=== PATIENT | female | born 1960 | race Caucasian/White ===

== ENCOUNTER 2019-02-03 21:55 | Emergency (ER) | payer BC ==
[2019-02-03] MEDS ORDERED: ASPIRIN 81 MG CHEWABLE TABLETS PO ONE (22:12)
[2019-02-03 22:14] VITALS: TEMP 98.2; BMI 23.6
[2019-02-03 22:28] LABS: BASO % 0.4 % (0-2.0); HEMATOCRIT 42.4 % (32.4-45.2); HEMOGLOBIN 14.2 GM/dL (10.7-15.3); LYMPH % 37.4 % (8-40); MCH 29.8 pg (25.7-33.7); MCHC 33.4 g/dl (32.0-36.0); MEAN CELL VOLUME 89.1 fl (80-96); MEAN PLT VOLUME 7.5 fl (7.5-11.1); MONO % 7.4 % (3.8-10.2); NEUT % 53.8 % (42.8-82.8); PLATELET COUNT 301 K/MM3 (134-434); RBC 4.75 M/mm3 (3.60-5.2); RDW 13.6 % (11.6-15.6); WHITE BLOOD COUNT 5.9 K/mm3 (4.0-10.0)
[2019-02-03] MEDS ORDERED: ASPIRIN 81 MG CHEWABLE TABLETS ONE (22:42)
--- NOTE | 2019-02-03 22:43 | PDOC ---
History of Present Illness - General Chief Complaint: Chest Pain Stated Complaint: CHEST PAIN Time Seen by Provider: 02/03/19 22:08 History Source: Patient, Spouse ( at bedside) Exam Limitations: No Limitations - History of Present Illness Initial Comments: HPI: 58 y/o female presenting to [facility] ER complaining of left sided versus substernal chest pain with nausea and lightheadedness since approx. 20:30 tonight. Symptoms started at rest approx. 30 min after taking two over the counter Excedrin for a diffuse headache. Pt has never taken Excedrin before. Pain is described as constant with intermittent episodes of increased intensity lasting approx. 3 minutes. These episodes as described as sharp with radiation to her upper back. No radiation to her neck, arms, or abdomen. No associated shortness of breath or change with exertion. Walks frequently with work as [employer] afterschool without anginal symptoms. Pt denies h/o similar symptoms. Social Hx: - Tobacco: Never used tobacco products - Street drugs: denies Family Hx: - Denies h/o IA under age 65 - Denies h/o collagen or connective tissue disorders Medical Hx: - Pt denies past medical history. Does not take any prescription medications. Surgical Hx: - Cholecystectomy - Partial Hysterectomy - x2 Review of Systems: In addition to that documented in the HPI above, the additional ROS was obtained : Constitutional- Endorses chills without fever. Head- Denies vision changes ENMT- Denies sore throat CV- Per HPI Resp- Denies SOB GI- Denies abdominal pain, vomiting, or diarrhea - Denies painful urination or hematuria MSK- Denies recent trauma Skin- Denies new rashes Neuro- Denies new numbness or tingling or weakness Endocrine- Denies polyuria Heme- Denies bleeding or bruising Physical Examination: Vital signs and nursing notes reviewed. Constitutional- Well-developed, well-nourished adult female in no acute distress but mild obvious discomfort. Found semi-fowlers on hospital bed. Observed walking throughout the department unassisted without obvious discomfort. Answered all questions appropriately and completely. Head- Normocephalic. No obvious external signs of trauma. Eyes- Sclerae white. Neck- Supple, trachea is midline. Cardiovascular / Chest- Regular rate and regular rhythm. No murmur, rubs, clicks , or gallops. Peripheral pulses- radial and DPL pulses 4+ and equal bilaterally. No pretibial edema. Respiratory- Breathing unlabored. Equal chest rise and fall. Clear to auscultation bilaterally. No stridor, no wheezing, no rhonchi. Gastrointestinal- abdomen is soft, non-tender, non-distended. No pulsatile masses. Neuro- Alert and oriented x4. Moving all four extremities spontaneously. No facial asymmetry. No slurred speech. Skin- Warm, dry, and intact. Psych- Affect- appropriate. Mood- normal. Speech was non-labored, non- pressured. MDM: 58 y/o female presenting with substernal chest pain with radiation to upper back. Afebrile. Vitals remarkable for hypertension without tachcyardia. Physical exam as described above. D/D includes ACS, aortic dissection, coronary artery vasospasm, MSK pain. Low suspicion for pericardial effusion or PE. Ordered ASA and Morphine. EKG unremarkable for ischemic findings. Initial troponin not elevated. Would consider delta troponin as symptoms started <3 hours from time of draw. No significant electrolyte derangement. CXR revealed more prominent aortic knob when compared to previous study. Will obtain CTA of aorta to further evaluate for dissection. Noted BP discrepancy between left and right arms as documented in the vitals section. 04 Feb 2019 00:05 AM Pt signed out to resident Dr. Fox after she was verbally appraised of the pts HPI, current ED course, and plan of management. Will f/u pending CTA results. Dispo pending. Gualberto Hinton M.D., PGY2 Emergency Medicine Resident Past History - Past Medical History Allergies/Adverse Reactions: Allergies Allergy/AdvReac Type Severity Reaction Status Date / Time No Known Drug Allergies Allergy Verified 06/18/15 07:49 Home Medications: Ambulatory Orders NK [No Known Home Medication] 02/03/19 Anemia: No Asthma: No Cancer: No Cardiac Disorders: No CVA: No COPD: No CHF: No Dementia: No Diabetes: No GI Disorders: No Disorders: No HTN: No Hypercholesterolemia: No Liver Disease: No Seizures: No Thyroid Disease: No - Surgical History Abdominal Surgery: No Appendectomy: No Cardiac Surgery: No Cholecystectomy: Yes (2009) Lung Surgery: No Neurologic Surgery: No Orthopedic Surgery: Yes (r knee arthroscopy) - Psycho Social/Smoking Cessation Hx Smoking History: Never smoked Hx Alcohol Use: Yes (ocasionally) Drug/Substance Use Hx: No Substance Use Type: None Hx Substance Use Treatment: No *Physical Exam - Vital Signs Last Vital Signs Temp Pulse Resp BP Pulse Ox 98.2 F 78 19 184/94 H 100 02/03/19 21:57 02/03/19 21:57 02/03/19 21:57 02/03/19 21:57 02/03/19 21:57 Vital Signs - Vital Signs #1 Time: 22:42 Blood Pressure: 168/80 BP Location: Left Arm Blood Pressure Position: Sitting Pulse Rate: 73 #2 Time: 22:41 Blood Pressure: 146/83 BP Location: Right Arm Blood Pressure Position: Sitting Pulse Rate: 72 Procedures - Additional Procedures Progress: Peripheral IV Line Procedure Note Procedure: peripheral intravenous line insertion Indication: need for large bore IV access for CT with contrast Cigarette Examiner: Gualberto Hinton M.D., PGY2 Consent: verbal Preparation: isopropyl alcohol Technique: using aseptic technique a vein in the left AC was cannulated with an 20 gauge angiocath. Blood specimens were obtained for analysis. Catheter flushed with saline without local swelling or pain, and was secured in the usual fashion. Patient tolerated the procedure well. EBL minimal. ED Treatment Course - LABORATORY CBC & Chemistry Diagram: 02/03/19 22:00 02/03/19 22:00 - ADDITIONAL ORDERS Additional order review: 02/03/19 22:00 RBC 4.75 MCV 89.1 MCHC 33.4 RDW 13.6 MPV 7.5 Neutrophils % 53.8 Lymphocytes % 37.4 Monocytes % 7.4 Eosinophils % 1.0 Basophils % 0.4 - RADIOLOGY Radiology Studies Ordered: Category Date Time Status CHEST PA & LAT [RAD] Stat Radiology 02/03/19 22:11 Taken Discharge - Discharge Information Problems reviewed: Yes Clinical Impression/Diagnosis: Chest pain Qualifiers: Chest pain type: unspecified Qualified Code(s): R07.9 - Chest pain, unspecified Condition: Stable - Follow up/Referral - Patient Discharge Instructions - Post Discharge Activity
[2019-02-03] MEDS ORDERED: morphine CARPU-JECT 4 MG/1 ML DISP.SYRIN IVPUSH ONE (22:48)
[2019-02-03 22:56] LABS: ALBUMIN 3.8 g/dl (3.4-5.0); BILIRUBIN,TOTAL 0.3 mg/dL (0.2-1); BLOOD UREA NITROGEN 14.4 mg/dL (7-18); CALCIUM 9.3 mg/dL (8.5-10.1); CREATININE 0.6 mg/dL (0.55-1.3); POTASSIUM 3.8 mmol/L (3.5-5.1); TOT PROT 7.2 g/dl (6.4-8.2)
[2019-02-03 22:57] LABS: MAGNESIUM 2.5 mg/dL (1.8-2.4)
[2019-02-03] MEDS ORDERED: morphine SULFATE 4 MG/ML VIAL ONE (23:04)
[2019-02-03] MEDS ORDERED: SODIUM CHLORIDE 1,000 ML IV STA (23:47)
--- NOTE | 2019-02-03 23:48 | PDOC ---
Attending Attestation - Resident Resident Name: Gualberto Hinton - ED Attending Attestation I have performed the following: I have examined & evaluated the patient, The case was reviewed & discussed with the resident, I agree w/resident's findings & plan - HPI HPI: 02/03/19 23:40 Pt ate dinner and then she had some chest pain and she took 2 excedrin and she had worse pain; her brought her in.0. - Physicial Exam PE: 02/04/19 02:18 Normal exam . Lungs normal Heart WNL no flank pain Normal BP bilaterally equal pulses bilaterally No extremity swelling - Medical Decision Making 02/04/19 01:27 Patient Name: MINA CALLAHAN THIS IS A PRELIMINARY REPORT FROM [facility] DATE OF SERVICE: 2019-02-03 23:03:45 IMAGES: [id number] EXAM: CHEST CTA HISTORY: Substernal chest pain radiating to back COMPARISON: None. FINDINGS: Negative for pulmonary embolus. Negative for thoracic aortic aneurysm. There is insufficient contrast in the aorta to evaluate for dissection (the scan was protocoled as a PE study). Lungs are clear acute disease. No pulmonary infiltrates or pleural effusions. Calcified granuloma right lung base. 02/04/19 02:17 SOLDERER DIPPER is 133/70 on right and 132/72 on left. Pt feels great. No pain at this time. Heart Score/ECG Review - ECG Intrepretation Rhythm: Regular Rhythm - [place]: Normal - P and NV Delta Wave(s) Present: No WPW: No - ST and T Early Repolarization: No Non Specific ST-T Wave changes: No - ECG Impressions Normal ECG: Yes Non-specific ST Elevation: No Ischemic Changes: No Bradycardia: No Torsades alexa Pointes: No WPW: No
--- NOTE | 2019-02-04 00:10 | PDOC ---
*Physical Exam - Vital Signs Last Vital Signs Temp Pulse Resp BP Pulse Ox 98.2 F 73 18 168/80 100 02/03/19 21:57 02/04/19 00:12 02/03/19 23:43 02/04/19 00:12 02/03/19 23:43 <Luana Ibarra - Last Filed: 02/04/19 02:15> - Vital Signs Last Vital Signs Temp Pulse Resp BP Pulse Ox 98.2 F 81 18 162/85 100 02/03/19 21:57 02/03/19 23:43 02/03/19 23:43 02/03/19 23:43 02/03/19 23:43 - Physical Exam 02/04/19 00:05 Patient signed out by resident Dr. Hinton In short patient is a 58 y/o complaining of L sided chest pain onset at 2030 while at rest radiating to the back after she took Excedrin. Pain constant but waxing and waning. Initial vitals signs with hypertension, labs wnl, cxr with no acute pathology, ekg nsr at 79bpm, CTA pending radiology read ED Course: CTA inappropriately times for PE study rather than aorta study. Radiology unable to evaluate for dissection due to insufficient contrast in the aorta Patient however on reassessment, feels much improved and is eager for D/C <Lissette Fox - Last Filed: 02/13/19 11:34> ED Treatment Course - LABORATORY CBC & Chemistry Diagram: 02/03/19 22:00 02/03/19 22:00 - ADDITIONAL ORDERS Additional order review: Laboratory Results 02/04/19 02/03/19 02/03/19 01:15 22:00 22:00 Sodium 141 Potassium 3.8 Chloride 107 Carbon Dioxide 28 Anion Gap 5 L BUN 14.4 Creatinine 0.6 Est GFR (CKD-EPI)AfAm 115.63 Est GFR (CKD-EPI)NonAf 99.77 Random Glucose 104 Calcium 9.3 Magnesium 2.5 H Total Bilirubin 0.3 AST 16 ALT 30 Alkaline Phosphatase 100 Troponin I 0.04 0.03 Total Protein 7.2 Albumin 3.8 02/03/19 22:00 RBC 4.75 MCV 89.1 MCHC 33.4 RDW 13.6 MPV 7.5 Neutrophils % 53.8 Lymphocytes % 37.4 Monocytes % 7.4 Eosinophils % 1.0 Basophils % 0.4 - Medications Given in the ED: ED Medications Discontinued Medications Generic Name Dose Route Start Last Admin Trade Name Freq PRN Reason Stop Dose Admin Aspirin 162 mg 02/03/19 22:12 02/03/19 22:43 Asa - PO 02/03/19 22:13 162 mg ONCE ONE Administration Sodium Chloride 1,000 mls @ 1,000 mls/hr 02/03/19 23:47 02/04/19 00:52 Normal Saline - IV 02/04/19 00:46 1,000 mls/hr ASDIR STA Administration Morphine Sulfate 4 mg 02/03/19 22:48 02/03/19 23:43 Morphine Injection - IVPUSH 02/03/19 22:49 4 mg ONCE ONE Administration <Luana Ibarra - Last Filed: 02/04/19 02:15> - LABORATORY CBC & Chemistry Diagram: 02/03/19 22:00 02/03/19 22:00 - ADDITIONAL ORDERS Additional order review: Laboratory Results 02/03/19 02/03/19 22:00 22:00 Sodium 141 Potassium 3.8 Chloride 107 Carbon Dioxide 28 Anion Gap 5 L BUN 14.4 Creatinine 0.6 Est GFR (CKD-EPI)AfAm 115.63 Est GFR (CKD-EPI)NonAf 99.77 Random Glucose 104 Calcium 9.3 Magnesium 2.5 H Total Bilirubin 0.3 AST 16 ALT 30 Alkaline Phosphatase 100 Troponin I 0.03 Total Protein 7.2 Albumin 3.8 02/03/19 22:00 RBC 4.75 MCV 89.1 MCHC 33.4 RDW 13.6 MPV 7.5 Neutrophils % 53.8 Lymphocytes % 37.4 Monocytes % 7.4 Eosinophils % 1.0 Basophils % 0.4 - Medications Given in the ED: ED Medications Discontinued Medications Generic Name Dose Route Start Last Admin Trade Name Freq PRN Reason Stop Dose Admin Aspirin 162 mg 02/03/19 22:12 02/03/19 22:43 Asa - PO 02/03/19 22:13 162 mg ONCE ONE Administration Morphine Sulfate 4 mg 02/03/19 22:48 02/03/19 23:43 Morphine Injection - IVPUSH 02/03/19 22:49 4 mg ONCE ONE Administration <Lissette Fox - Last Filed: 02/13/19 11:34> Discharge - Discharge Information Problems reviewed: Yes - Admission No <Luana Ibarra - Last Filed: 02/04/19 02:15> <Lissette Fox - Last Filed: 02/13/19 11:34> - Discharge Information Clinical Impression/Diagnosis: Gastritis Chest pain Qualifiers: Chest pain type: unspecified Qualified Code(s): R07.9 - Chest pain, unspecified Condition: Improved Disposition: HOME - Follow up/Referral Referrals: Nick Chang [Primary Care Provider] - - Patient Discharge Instructions Patient Printed Discharge Instructions: DI for Gastritis
[2019-02-04 02:29] VITALS: BP 132/76; PULSE 71
--- NOTE | 2019-02-04 15:27 | EKG ---
Test Reason : Blood Pressure : / mmHG Vent. Rate : 079 BPM Atrial Rate : 079 BPM P-R Int : 150 ms QRS Dur : 084 ms QT Int : 406 ms P-R-T Axes : 057 055 046 degrees QTc Int : 465 ms NORMAL SINUS RHYTHM NORMAL ECG WHEN COMPARED WITH ECG OF 11-JUN-2015 14:49, NO SIGNIFICANT CHANGE WAS FOUND Confirmed by MD ANATOLIY, MARGARET ([id number]) on 02/04/2019 3:26:55 PM Referred By: Confirmed By:MARGARET COPE MD
== END 2019-02-04 02:30 | disposition home or self-care (01) ==
LOC: JER 21:55
PROC: 3E0337Z Introduction of Electrolytic and Water Balance Substance into Peripheral Vein, Percutaneous Approach (ICD-10-PCS; principal; 2019-02-03)
PROC: 3E033NZ Introduction of Analgesics, Hypnotics, Sedatives into Peripheral Vein, Percutaneous Approach (ICD-10-PCS; 2019-02-03)
DX: K29.70 Gastritis, unspecified, without bleeding (principal); R07.9 Chest pain, unspecified; Z90.49 Acquired absence of other specified parts of digestive tract; Z90.710 Acquired absence of both cervix and uterus
CPT/HCPCS: 36415; 71046-TC-FY; 71275-TC; 80053; 83735; 84484; 85025; 93005; 93010; 99283-25; J7030

== ENCOUNTER 2023-01-27 04:19 | Day surgery (SDC) | payer BC ==
[2023-01-25 17:54] VITALS: BMI 29.5
[2023-01-27] MEDS ORDERED: MIDAZOLAM HCL 2 MG/2 ML SINGLE DOSE VIAL ONE (12:11)
[2023-01-27] MEDS ORDERED: BUPIVACAINE HCL/PF 0.5% (5MG/ML) 10 ML VIAL ONE (12:44)
[2023-01-27] MEDS ORDERED: LIDOCAINE HCL 1%, 10 MG/ML (20ML VIAL) ONE (12:44)
[2023-01-27] MEDS ORDERED: DEXAMETHASONE SOD PHOSPHATE 4 MG/1 ML VIAL ONE (13:02)
[2023-01-27] MEDS ORDERED: ceFAZolin SODIUM 1 GM VIAL ONE (13:02)
[2023-01-27] MEDS ORDERED: KETOROLAC TROMETHAMINE 30 MG/1 ML VIAL ONE (13:04)
[2023-01-27] MEDS ORDERED: ONDANSETRON 4 MG/2 ML VIAL ONE (13:04)
[2023-01-27] MEDS ORDERED: BUPIVACAINE HCL/PF 0.5% (5MG/ML) 10 ML VIAL IJ ONE ×2 (13:08)
[2023-01-27] MEDS ORDERED: LIDOCAINE HCL 1%, 10 MG/ML (50 mL VIAL) INF ONE ×2 (13:08)
[2023-01-27] MEDS ORDERED: ceFAZolin SODIUM 1 GM VIAL IVPB ONE (13:08)
[2023-01-27 14:00] VITALS: RESP 16
[2023-01-27 15:56] VITALS: BP 139/77; PULSE 72; TEMP 97.3
== END 2023-01-27 15:35 | disposition home or self-care (01) ==
LOC: JASU-SURG 04:19
PROVIDERS: ATTEND Orthopaedic Surgery
PROC: 0JBK0ZZ Excision of Left Hand Subcutaneous Tissue and Fascia, Open Approach (ICD-10-PCS; principal; 2023-01-27 11:30)
DX: M71.342 Other bursal cyst, left hand (principal)
CPT/HCPCS: 88305-TC